=== PATIENT | female | born 1990 | race Caucasian/White ===

== ENCOUNTER 2018-09-02 23:42 | Outpatient (CLI) | payer BC ==
--- NOTE | 2018-09-02 23:35 | NUR ---
Ambulatory to unit for assessment. Reports " I had some red tinged mucous @ 2245, and I've had a low backache all day."
[2018-09-03] VITALS: BP 127/76; PULSE 91; TEMP 98.4
--- NOTE | 2018-09-03 | NUR ---
Vaginal 'sweep' reveals no bleeding, no loss of fluid, amnio-trace with no color change.
--- NOTE | 2018-09-03 00:35 | NUR ---
Discharge instructions reviewed, quetions invited and answered. Ambulatory off unit.
[2018-09-03] MEDS ORDERED: MULTI VITAMINS1 TAB PO (10:01)
[2018-09-03] MEDS ORDERED: IRON TABLETS325 MG PO (10:01)
[2018-09-03] MEDS ORDERED: ZOLOFT 50MG50 MG PO (10:01)
[2018-09-03] MEDS ORDERED: ASPIRIN 81M81 MG/TA2 PO (10:02)
[2018-09-04] MEDS ORDERED: IBU800 M1 PO (08:48)
[2018-09-04] MEDS ORDERED: ROXICODONE 55 MG/TAB PO (08:49)
[2018-09-04] MEDS ORDERED: BREASTPUMP MC (08:50)
[2018-09-04] MEDS ORDERED: ZOLOFT 50MG50 MG PO (11:37)
== END 2018-09-03 00:35 | disposition home or self-care (01) ==
LOC: LDR 23:42 → LDRO 23:42
DX: Z34.82 Encounter for supervision of other normal pregnancy, second trimester (principal); Z3A.27 27 weeks gestation of pregnancy
CPT/HCPCS: OP

== ENCOUNTER → 2018-09-02 | Emergency (ER) | payer BC ==
[~2018-09-02] MED LIST: ASPIRIN 81M81 MG/TA2 PO; BREASTPUMP MC; IBU800 M1 PO; IRON TABLETS325 MG PO; MULTI VITAMINS1 TAB PO; ROXICODONE 55 MG/TAB PO; ZOLOFT 50MG50 MG PO
== END ==
LOC: COL.ER 23:16
DX: Z72.9 Problem related to lifestyle, unspecified (principal)

== ENCOUNTER 2018-09-03 09:49 | Inpatient (IN) | payer BC ==
[~2018-09-03] VITALS: Ht 157.5 cm; Wt 85.0 kg
[2018-09-03] VITALS (20 sets, daily range): BP systolic 90–132; BP diastolic 47–80; PULSE 86–113; TEMP 97.8–98.3
[2018-09-03] MEDS ORDERED: MULTI VITAMINS1 TAB PO (10:01)
[2018-09-03] MEDS ORDERED: IRON TABLETS325 MG PO (10:01)
[2018-09-03] MEDS ORDERED: ZOLOFT 50MG50 MG PO (10:01)
[2018-09-03] MEDS ORDERED: ASPIRIN 81M81 MG/TA2 PO (10:02)
--- NOTE | 2018-09-03 10:29 | NUR ---
[id number] PATIENT HERE WITH COMPLAINTS OF FEELING SOMETHING IN HER VAGINA. FEELS PRESSURE AND LEAKING. AMNIOTRACE POSITIVE LEAKING NOTED ON LEGS. SVE COMPLETE/[address] IN VAGINA[address] NATARAJAN CALLED TO ROOM NOW. SONO DONE AT BEDSIDE PER DR NATARAJAN TO NOTE PRESENTING PART. FOOTLING BREECH NOTED AT THIS TIME. DR NATARAJAN SVE COMPLETE AND FEET NOTED. [address] CHARLES AT BEDSIDE. Pat [place] CIRC[employer]ATION SALES REPRESENTATIVE AT BEDSIDE TO GET PATIENTS HISTORY. PATIENTS FRIEND CALLING TO GET HIM HERE. PATIENT VERY ANXIOUS AT THIS TIME.EFM FHT 125. NO CONTRACTIONS NOTED BUT PATIENT IS CRAMPING ALOT. REPORT GIVEN TO Peter MUNGUIA TO ASSUME CARE
[2018-09-03 10:34] LABS: BASO # 0.1 (0.0-0.2); BASO % 0.3 % (0.0-2.0); EOS # 0.1 (0.0-0.7); EOS % 0.6 % (0-4.0); GRAN # 13.5 (1.4-6.5); GRAN % 77.5 % (42.2-75.2); HEMATOCRIT 37.5 % (37.0-47.0); HEMOGLOBIN 12.9 g/dl (12.5-16.0); LYMPH # 2.5 (1.2-3.4); LYMPH % 14.5 % (20.0-51.0); MEAN CELL VOLUME 86 fl (80.0-100.0); MEAN CORPUSCULAR HEMOGLOBIN 30 pg (27.0-31.0); MEAN CORPUSCULAR HGB CONC 34 g/dl (33.0-37.0); MONO # 1.1 (0.1-0.6); MONO % 6.3 % (1.7-9.3); PLATELET COUNT 183 K/mm3 (130-400); RED BLOOD COUNT 4.38 M/mm3 (4.10-5.30); REDCELL DISTRIBUTION WIDTH-CV 13.3 % (11.5-14.5)
--- NOTE | 2018-09-03 11:31 | NUR ---
Skin prep performed. Pt taken off monitors. Taken to OR via bed.
[2018-09-04 00:50] VITALS: BP 99/41; PULSE 81; TEMP 98.9
[2018-09-04 05:00] VITALS: BP 102/51; PULSE 69; TEMP 97.8
[2018-09-04 08:20] VITALS: BP 123/67; PULSE 78; TEMP 97.6
[2018-09-04] MEDS ORDERED: IBU800 M1 PO (08:48)
[2018-09-04] MEDS ORDERED: ROXICODONE 55 MG/TAB PO (08:49)
[2018-09-04] MEDS ORDERED: BREASTPUMP MC (08:50)
--- NOTE | 2018-09-04 11:31 | NUR ---
Initial visit; Mom and Grandma thanked Audioprosthologist for offering congratulations and God's blessings for the of their daughter. Audioprosthologist thanked family for their compliments regarding their great care at our hospital.
[2018-09-04] MEDS ORDERED: ZOLOFT 50MG50 MG PO (11:37)
== END 2018-09-04 13:30 | disposition home or self-care (01) | DRG 786 ==
LOC: LDRO 09:49 → LDR 10:00 → OB 14:15
PROVIDERS: ADMIT Student in an Organized Health Care Education/Training Program
PROC: 10D00Z1 Extraction of Products of Conception, Low, Open Approach (ICD-10-PCS; principal; 2018-09-03)
DX: O42.012 Preterm premature rupture of membranes, onset of labor within 24 hours of rupture, second trimester (principal); O60.12X0 Preterm labor second trimester with preterm delivery second trimester, not applicable or unspecified; O30.042 Twin pregnancy, dichorionic/diamniotic, second trimester; Z3A.27 27 weeks gestation of pregnancy; Z37.3 Twins, one liveborn and one stillborn; O99.214 Obesity complicating childbirth; O32.8XX0 Maternal care for other malpresentation of fetus, not applicable or unspecified; F41.9 Anxiety disorder, unspecified; O99.344 Other mental disorders complicating childbirth; F32.9 Major depressive disorder, single episode, unspecified; O76 Abnormality in fetal heart rate and rhythm complicating labor and delivery; O99.814 Abnormal glucose complicating childbirth; E66.9 Obesity, unspecified; Z90.49 Acquired absence of other specified parts of digestive tract; Z79.82 Long term (current) use of aspirin; Z23 Encounter for immunization
CPT/HCPCS: J0690; J0702; J1885; J2370; J2405; J2540; J2590; J3010; J7120